=== PATIENT | male | born 1955 | race Caucasian/White ===

== ENCOUNTER 2016-07-11 19:32 | Emergency (ER) | payer OTHER ==
[2016-07-11 19:51] VITALS: BP 122/76; PULSE 74; RESP 16; TEMP 97.9; O2SAT 100
== END 2016-07-11 20:22 | disposition left against medical advice (07) ==
DX: Z53.21 Procedure and treatment not carried out due to patient leaving prior to being seen by health care provider (principal)

== ENCOUNTER 2018-11-14 22:31 | Emergency (ER) | payer OTHER | END 2018-11-15 00:18 | disposition home or self-care (01) ==